=== PATIENT | male | born 1955 | race Caucasian/White ===

== ENCOUNTER 2019-07-14 13:15 | Emergency (ER) | payer MEDICARE ==
[~2019-07-14] VITALS: Ht 177.8 cm; Wt 55.5 kg
[~2019-07-14 13:15] MED LIST: ALBUTEROL0.83 MG/ML IH; ASPIRIN E.C. 8181 MG PO; CARDIZEM CD 12120 MG PO; IPRATROPIUM BROM3 M1 IH; LASIX 20MG TABL20 MG PO; LEVAQUIN 5500 MG/TA1 PO; PERFOROMIS20 MCG/2 M IH; PREDNISONE10 MG PO; PRINIVIL20 MG PO; PROAIR HFA0.09 MG/AC IH; PULMICORT0.5 MG/2 M IH; RT SPIRIVA18 MCG IH; TAMIFLU 75MG75 MG PO; THEO-DUR 2200 MG/TAB PO; UNIPHYL 400MG400 MG PO
[2019-07-14 13:16] VITALS: TEMP 97.6
[2019-07-14] MEDS ORDERED: ATROVENT I0.2 MG/1 M IH (13:45)
[2019-07-14] MEDS ORDERED: PULMICORT0.5 MG/2 M IH (13:47)
[2019-07-14] MEDS ORDERED: PERFOROMIS20 MCG/2 M IH (13:48)
[2019-07-14] MEDS ORDERED: CENTRUM CHEWAB1 EAC3 PO (13:49)
[2019-07-14] MEDS ORDERED: PRINIVIL40 MG PO (13:50)
[2019-07-14] MEDS ORDERED: PRAVACHOL 40MG40 MG PO (13:51)
[2019-07-14 14:01] LABS: MEAN CELL VOLUME 96 fl (80.0-100.0); MEAN CORPUSCULAR HGB CONC 31 g/dl (33.0-37.0); MEAN PLATELET VOLUME 9.7 fl (7.4-10.4); PLATELET COUNT 157 K/mm3 (130-400); REDCELL DISTRIBUTION WIDTH-CV 13.2 % (11.5-14.5)
[2019-07-14 14:03] LABS: HEMATOCRIT 31.6 % (42.0-52.0); HEMOGLOBIN 9.8 g/dl (13.5-18.0); MEAN CORPUSCULAR HEMOGLOBIN 30 pg (27.0-31.0)
[2019-07-14 14:30] LABS: COLLECTION METHOD CLEAN CATCH
[2019-07-14 14:37] LABS: BAND 20 % (0-10); LYMPHOCYTE 4 % (20.0-51.0); METAMYELOCYTE 20 % (0-0); NEUTROPHILS 55 % (42.0-75.2); PLATELET ESTIMATE NORMAL (NORMAL)
[2019-07-14 14:40] LABS: HYPOCHROMIA 1+
[2019-07-14 15:03] LABS: MUCOUS Present /lpf; PH 6 (5-8); SQUAMOUS EPITHELIAL None Seen /hpf; URINE APPEARANCE Hazy; URINE BACTERIA Rare /hpf; URINE BILIRUBIN Negative (NEGATIVE); URINE BLOOD 2+ (NEGATIVE); URINE CALCIUM OXALATE CRYSTAL Present /hpf; URINE COLOR Amber; URINE GLUCOSE Negative (NEGATIVE); URINE KETONE Negative (NEGATIVE); URINE LEUKOCYTE ESTERASE Negative (NEGATIVE); URINE NITRATE Negative (NEGATIVE); URINE PROTEIN(semi-quant) 1+ (NEGATIVE); URINE RBC >50 /hpf; URINE UROBILINOGEN >=4.0 mg/dL (NEGATIVE)
[2019-07-14 15:15] LABS: ARTERIAL BLD GAS O2 SATURATION 89.2 % (92-100); ARTERIAL BLD GAS TCO2 CT 40.8; ARTERIAL BLOOD GAS BASE EXCESS 11.8 (-2-2); ARTERIAL BLOOD GAS HCO3 38.7 meq/L (22-26); ARTERIAL BLOOD GAS PO2 61.4 mmHg (80-100); ARTERIAL BLOOD GAS pH 7.39 (7.35-7.45)
[2019-07-14 15:15] LABS: ALBUMIN 2.2 gm/dL (3.5-5.0); BILIRUBIN,TOTAL 0.6 mg/dL (0.0-1.0); CALCIUM 8.3 mg/dL (8.4-10.2); CREATININE, serum 0.29 (0.66-1.25); POTASSIUM 4.4 mmol/L (3.4-5.0); TOTAL PROTEIN 5.5 gm/dL (6.4-8.2)
[2019-07-14 15:16] LABS: ARTERIAL BLOOD GAS PCO2 66.2 mmHg (35-45)
[2019-07-14 17:46] LABS: ARTERIAL BLD GAS O2 SATURATION 90.1 % (92-100); ARTERIAL BLOOD GAS BASE EXCESS 11.6 (-2-2); ARTERIAL BLOOD GAS HCO3 37.2 meq/L (22-26); ARTERIAL BLOOD GAS PCO2 56.2 mmHg (35-45); ARTERIAL BLOOD GAS pH 7.44 (7.35-7.45)
[2019-07-14 22:30] VITALS: BP 82/56; PULSE 113
[2019-07-15 08:31] LABS: PATHOLOGY DIFF REVIEW OK +
== END 2019-07-14 22:30 | disposition short-term general hospital (02) ==
LOC: COL.ER 13:15
PROVIDERS: Emergency Medicine
DX: J44.9 Chronic obstructive pulmonary disease, unspecified (principal); I95.9 Hypotension, unspecified; J86.9 Pyothorax without fistula; R91.8 Other nonspecific abnormal finding of lung field; I10 Essential (primary) hypertension; R09.02 Hypoxemia; Z79.82 Long term (current) use of aspirin
CPT/HCPCS: J2543; J2930; J3370; J7030; J7040; J7050; Q9967